=== PATIENT | female | born 1955 | race Caucasian/White ===

== ENCOUNTER 2019-05-15 07:27 | Observation (INO) | payer BC, MEDICARE ==
--- NOTE | 2019-05-15 07:46 | RAD ---
EXAM: Portable chest PROVIDED CLINICAL HISTORY: Chest pain COMPARISON: None FINDINGS: Cardiac and mediastinal silhouette is within normal limits. No focal consolidation, pleural fluid or pneumothorax evident. Median sternotomy changes are seen. IMPRESSION: No evidence for an acute cardiopulmonary process.
[2019-05-15] MEDS ORDERED: Aspirin Chewable 81 MG TAB ONE (08:06)
[2019-05-15] MEDS ORDERED: Nitroglycerin 2% Ointment 1 INCH/1 GM Packet ONE (08:06)
[2019-05-15 08:12] LABS: Hemoglobin 13.6 g/dL (12.0-16.0); Mean Corpuscular HGB CONC 32.1 g/dL (32.0-36.0); Mean Corpuscular Volume 65.4 fL (78.0-98.0); Mean Platelet Volume 8.6 fL (7.4-10.4); Platelet Count 316 thou/uL (130-400); RBC Distribution Width 14.1 % (11.5-14.5); Red Blood Cell (RBC) Count 6.46 mill/uL (4.20-5.40); White Blood Cell (WBC) Count 13.1 thou/uL (4.8-10.8)
[2019-05-15 08:22] LABS: ALT (SGPT) 23 U/L (8-55); AST (SGOT) 17 U/L (5-34); Albumin 4.2 g/dL (3.4-4.8); Alkaline Phosphatase 102 U/L (40-150); Anion Gap 12 mmol/L (10-20); BUN (Urea Nitrogen) 14 mg/dL (9.8-20.1); Bilirubin, Total 0.5 mg/dL (0.2-1.2); CK (CPK) 67 U/L (29-168); Calc. Creatinine Clearance 0 mL/min (70-130); Calcium 9.5 mg/dL (7.8-10.44); Carbon Dioxide 27 mmol/L (23-31); Chloride 105 mmol/L (98-107); Estimated GFR-MDRD 71; Globulin 3.1 g/dL (2.4-3.5); Glucose 98 mg/dL (80-115); Lipase 24 U/L (8-78); Potassium 3.8 mmol/L (3.5-5.1); Protein, Total 7.3 g/dL (6.0-8.3); Sodium 140 mmol/L (136-145)
[2019-05-15] MEDS ORDERED: Morphine 4 MG/ML VIAL ONE (08:29)
[2019-05-15 08:30] LABS: #Basophils 0.1 thou/uL (0.0-0.2); #Eosinphils 0.3 thou/uL (0.0-0.7); #Lymphocytes 2.5 thou/uL (1.20-3.40); #Monocytes 0.8 thou/uL (0.11-0.59); #Neutrophils 9.4 thou/uL (1.40-6.50); %Basophils 0.6 % (0.0-1.0); %Eosinophils 2.5 % (0.0-10.0); %Lymphocytes 19.1 % (21.0-51.0); %Monocytes 6.1 % (0.0-10.0); %Neutrophils 71.7 % (42.0-75.0); Anisocytosis SLIGHT = 6-15 cells (100X) (0-5/hpf); Hypochromia SLIGHT = 6-15 cells (100X) (0-5/hpf); Large Platelets SLIGHT; MDiff Complete? YES; Microcytosis MODERATE=15-30 cells (100X) (0-5/hpf); Platelet Morphology Comment Appears Adequate
--- NOTE | 2019-05-15 08:49 | CT ---
EXAM: CT pulmonary angiogram with IV contrast and 3-D MIP reconstructions PROVIDED CLINICAL HISTORY: Chest pain COMPARISON: None FINDINGS: There is no evidence for central or segmental pulmonary embolus. The lungs are free of significant op acity. No pleural fluid or pneumothorax apparent. No evidence for thoracic lymph node enlargement. The airway appears patent and of normal caliber. The visualized portions of the upper abdomen demonst rate no acute findings. The osseous structures demonstrate no concerning lytic or blastic lesions. Median sternotomy and CABG changes are seen. IMPRESSION: No evidence for central or segmental pulmonary embolus.
--- NOTE | 2019-05-15 10:12 | PDOC.FPRHP ---
- History of Present Illness Chief Complaint: Chest Pain History of Present Illness: Mrs. Gonzalez is a 64 y/o female with a history of HTN and a Cardiac Myxoma treated operatively who presents to the ED with a 2 day history of chest pain. She states that the pain is localized to her right and left upper chest, as well as her lower neck, and does not radiate. She also notes that she has recently gained 10 LBS, has had headaches off and on for the past 2 weeks, and has had difficulty lying flat or inhaling deeply for the past 2 days. She felt that she could control the pain with Tylenol, but came to the ED following advice from her daughter. She denies any visual disturbances, shortness of breath, N/V/D, abdominal pain, fevers, chills or night sweats. ED Course: The patient received an EKG, which showed no acute ischemic changes, as well as a CXR, which was also negative. Initial troponin values were negative, and a Chest/Thorax CTA performed by the ED attending physician was negative for PE. She received 1 dose of morphine, 1 dose of Nitro paste, and 81 mg of Aspirin. The patient thinks that the morphine relieved her pain but also made her somewhat nauseous. - Allergies/Adverse Reactions Allergies Allergy/AdvReac Type Severity Reaction Status Date / Time No Known Allergies Allergy Unverified 05/15/19 11:08 - Home Medications Medication Instructions Recorded Confirmed Type Aspirin [Ecotrin] 81 mg PO DAILY 05/15/19 05/15/19 History Biotin 5,000 mcg PO DAILY 05/15/19 05/15/19 History Calcium Carbonate [Calcium] 600 mg PO DAILY 05/15/19 05/15/19 History Cholecalciferol (Vitamin D3) 2,000 unit PO DAILY 05/15/19 05/15/19 History [Vitamin D3] Folic Acid 0.4 mg PO DAILY 05/15/19 05/15/19 History Levothyroxine Sodium 88 mcg PO DAILY 05/15/19 05/15/19 History Lisinopril/Hydrochlorothiazide 1 tablet PO DAILY 05/15/19 05/15/19 History [Lisinopril-Hctz 10-12.5 mg Tab] Omeprazole 20 mg PO DAILY 05/15/19 05/15/19 History - History PMHx: Cardiax Myxoma (Treated Surgically), HTN, GERD, Hypothyroidism PSHx: See PMHx, Hysterectomy FHx: Non-Contributory Social: Denies x3 - Review of Systems General: reports: weight/appetite/sleep changes (+10 LBS). denies: fever/chills , night sweats Eyes: denies: eye pain, vision changes ENT: denies: nasal congestion, rhinorrhea Respiratory: denies: cough, congestion, shortness of breath Cardiovascular: reports: chest pain, orthopnea. denies: palpitation, edema Gastrointestinal: denies: nausea, vomiting, diarrhea, constipation, abdominal pain, GI bleeding Genitourinary: denies: dysuria, discharge Skin: denies: rashes Musculoskeletal: denies: pain, stiffness, swelling Neurological: denies: syncope, weakness - Vital signs BP: [122/70] HR: [77] RR: [20] Tmax: [] Pox: [97]% on [Room] Wt: [] - Physical Exam Constitutional: NAD, awake, alert and oriented, well developed HEENT: normocephalic and atraumatic, PERRLA, conjunctiva clear, no scleral icterus, grossly normal vision, grossly normal hearing, normal nasal mucosa, MMM , oropharynx clear, good dention Neck: supple, FROM, trachea midline, no LAD, no JVD, no thyromegaly Chest: no-tender to palpation, no lesions Heart: RRR, normal S1/S2, no murmurs/rubs/gallops, pulses present, no edema Lungs: CTAB, no respiratory distress, good air movement, no rales/rhonchi, no wheezing, no retractions Abdomen: soft, non-tender, bowel sounds present, no masses/distention, no hernias Musculoskeletal: normal structure, normal tone, ROM grossly normal Neurological: no focal deficit, CN II-XII intact Skin: no rash/lesions, no jaundice Heme/Lymphatic: no unusual bruising or bleeding, no purpura, no petechia Psychiatric: normal mood and affect, good judgment and insight, intact recent and remote memory FMR H&P: Results - Labs Result Diagrams: 05/15/19 07:49 05/15/19 07:49 Lab results: WBC 13.1 thou/uL (4.8-10.8) H 05/15/19 07:49 Hgb 13.6 g/dL (12.0-16.0) 05/15/19 07:49 Hct 42.2 % (36.0-47.0) 05/15/19 07:49 MCV 65.4 fL (78.0-98.0) L 05/15/19 07:49 Plt Count 316 thou/uL (130-400) 05/15/19 07:49 Neutrophils % 71.7 % (42.0-75.0) 05/15/19 07:49 Sodium 140 mmol/L (136-145) 05/15/19 07:49 Potassium 3.8 mmol/L (3.5-5.1) 05/15/19 07:49 Chloride 105 mmol/L (98-107) 05/15/19 07:49 Carbon Dioxide 27 mmol/L (23-31) 05/15/19 07:49 BUN 14 mg/dL (9.8-20.1) 05/15/19 07:49 Creatinine 0.81 mg/dL (0.6-1.1) 05/15/19 07:49 Glucose 98 mg/dL (80-115) 05/15/19 07:49 Calcium 9.5 mg/dL (7.8-10.44) 05/15/19 07:49 Total Bilirubin 0.5 mg/dL (0.2-1.2) 05/15/19 07:49 AST 17 U/L (5-34) 05/15/19 07:49 ALT 23 U/L (8-55) 05/15/19 07:49 Alkaline Phosphatase 102 U/L (40-150) 05/15/19 07:49 Creatine Kinase 67 U/L (29-168) 05/15/19 07:49 B-Natriuretic Peptide 36.0 pg/mL (0-100) 05/15/19 07:49 Serum Total Protein 7.3 g/dL (6.0-8.3) 05/15/19 07:49 Albumin 4.2 g/dL (3.4-4.8) 05/15/19 07:49 Lipase 24 U/L (8-78) 05/15/19 07:49 - EKG Interpretation EKG: No acute ST Segment changes. - Radiology Interpretation Chest x-ray Status: report reviewed by me (NAF) CT scan - chest Status: report reviewed by me (INDY) FMR H&P: A/P - Problem List (1) Chest pain Current Visit: Yes Status: Acute Code(s): R07.9 - CHEST PAIN, UNSPECIFIED (2) GERD (gastroesophageal reflux disease) Current Visit: Yes Status: Acute Code(s): K21.9 - GASTRO-ESOPHAGEAL REFLUX DISEASE WITHOUT ESOPHAGITIS (3) HTN (hypertension) Current Visit: Yes Status: Acute Code(s): I10 - ESSENTIAL (PRIMARY) HYPERTENSION (4) History of myxoma Current Visit: Yes Status: Acute Code(s): Z86.018 - PERSONAL HISTORY OF OTHER BENIGN NEOPLASM (5) Hypothyroidism Current Visit: Yes Status: Acute Code(s): E03.9 - HYPOTHYROIDISM, UNSPECIFIED - Plan 1. Chest Pain, ACS r/o -2 day history of right and left sided chest/neck pain, no associated symptoms of N/V, sweating, palpitations, syncopal episodes or shortness of breath -Concerning associated symptoms of recent weight gain and pain with lying flat, could also possibly be related to GERD -EKG: Negative for ST-Elevation -CXR: [facility] -Chest/Thorax CTA: Negative for PE -Trops: Negative x2 -TSH: Pending -Mg: Pending -Phos: Pending -Patient current appears to be hemodynamically stable - admit to Tele-Obs -Plan for Stress Test on 05/16 -Order GI Cocktail for possible GI etiology 2. HTN -Currently well controlled at 122/70 -Continue home medication regimen 3. Hypothyroidism -Patient reports no difficulty obtaining or tolerating medication -TSH: Pending -Continue home medication regimen 4. GERD -Patient does not believe that this episode is related to GERD -Denies N/V, ABD pain or changes in bowel habits 5. Hx of Myxoma (Cardiac) -Remote Hx of Cardiac Myxoma treat operatively -Raises suspicion that current chest pain may be cardiac in nature Code: Full Diet: Heart Healthy, NPO after Midnight Fluids: SL Activity: Ad Ammy Dispo: Admit patient to Tele-Obs and plan for NM Cardiac Stress Test in AM. Expected LOS < 48H FMR H&P: Upper Level - Pertinent history 64yo F with pmh of cardiac myxoma (s/p resection 2013) presents for acute onset of CP. Pt was woken up from sleep 36hours prior to presentation with dull substernal, non radiating pain that is worsened with laying flat, belching, and with related globus sensation when swallowing. Also reports intermittent SOB. Denies diaphoresis. Prior to her surgery pt reports she had an stress test and cath done which were wnl. She also reports a normal ECHO in the last few years. Dr. 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 - Pertinent findings EKG, CXR, CTA chest, initial trop and vitals all wnl physical exam shows no notable findings, no LE edema - Plan Date/Time: 05/15/19 1002 I, Jas Villa PGY2, have evaluated this patient and agree with findings/ plan as outlined by programming internship resident. Pertinent changes/additions are listed here. CP likely 2/2 GERD A- Hx of GERD with pain exacerbated by laying flat and belching with associated globus sensation. However her cardiac history behooves ACS r/o. Workup is all negative thus far as written above. P- trend trops -stress test -ASA -FLP, TSH, Mg, Phos -pantoprazole 40mg BID -GI coctail now -tums prn -nitro SL for angina, notify provider if this happens GERD -per plan above HTN -home meds Hypothyroid -home meds, checking TSH CODE: Full Addendum - Attending - Attending Attestation Date/Time: 05/15/192028 I personally evaluated the patient and discussed the management with Dr. Hu and Daisy. H&P repeated by me. I agree with the History, Examination, Assessment and Plan documented above with any addition or exceptions noted below. CP r/o NC- most likely secondary to GERD but patient with cardiac risk factors- stress test resting portion done today and stress portion in the am.
[2019-05-15 10:26] LABS: Phosphorus 3.1 mg/dL (2.3-4.7)
[2019-05-15] MEDS ORDERED: Nitroglycerin 4.9 GM Bottle SL PRN (11:08)
[2019-05-15] MEDS ORDERED: Ondansetron ODT 4 MG TAB PO PRN (11:08)
[2019-05-15] MEDS ORDERED: Calcium Carbonate 500 MG ChewTAB PO PRN (11:08)
[2019-05-15] MEDS ORDERED: Enoxaparin Sodium 40 MG/0.4 ML SYRINGE SC SCH (11:08)
[2019-05-15] MEDS ORDERED: Lidocaine 2% Viscous Solution 10 ML, Aluminum & Magnesium Hydroxide 30 ML SSW SCH ×2 (11:08→14:00)
[2019-05-15] MEDS ORDERED: Acetaminophen 325 MG TAB PO PRN (11:09)
[2019-05-15 11:16] VITALS: BMI 34.6
[2019-05-15] MEDS ORDERED: Calcium Carbonate 600 MG TAB PO SCH (11:45)
[2019-05-15] MEDS ORDERED: Folic Acid 1 MG TAB PO SCH (11:45)
[2019-05-15] MEDS ORDERED: Levothyroxine Sodium 88 MCG TAB PO SCH (11:45)
[2019-05-15] MEDS ORDERED: Lisinopril/Hydrochlorothiazide 10 mg/12.5 mg Tablet PO SCH (11:45)
[2019-05-15 11:53] LABS: Phosphorus 2.9 mg/dL (2.3-4.7)
[2019-05-15 12:00] LABS: Troponin I Less than 0.010 ng/mL (< 0.028)
[2019-05-15] MEDS ORDERED: ISOVUE-370 76%-LOCM 1 ML ONE (12:46)
[2019-05-15] MEDS: Acetaminophen 325 MG TAB PO PRN ×2 (13:58→19:55)
[2019-05-15 14:38] LABS: Troponin I Less than 0.010 ng/mL (< 0.028)
[2019-05-15] MEDS ORDERED: Simethicone Chewable 80 MG TAB PO PRN (22:23)
[2019-05-15] MEDS ORDERED: Sucralfate 1 GM TAB PO SCH (22:30)
[2019-05-15] MEDS ORDERED: Simethicone Chewable 80 MG TAB PO SCH (22:30)
[2019-05-16 05:07] LABS: #Basophils 0.1 thou/uL (0.0-0.2); #Eosinphils 0.2 thou/uL (0.0-0.7); #Lymphocytes 2.3 thou/uL (1.20-3.40); #Monocytes 0.5 thou/uL (0.11-0.59); #Neutrophils 5.6 thou/uL (1.40-6.50); %Basophils 0.8 % (0.0-1.0); %Eosinophils 2.2 % (0.0-10.0); %Lymphocytes 26.2 % (21.0-51.0); %Monocytes 5.8 % (0.0-10.0); %Neutrophils 64.9 % (42.0-75.0); Hemoglobin 12.5 g/dL (12.0-16.0); Mean Corpuscular HGB CONC 28.8 g/dL (32.0-36.0); Mean Corpuscular Hemoglobin 19.3 pg (27.0-31.0); Platelet Count 352 thou/uL (130-400); RBC Distribution Width 14.6 % (11.5-14.5); White Blood Cell (WBC) Count 8.6 thou/uL (4.8-10.8)
[2019-05-16 05:34] LABS: Cardiac Risk 3.7 (Less than 4.5)
--- NOTE | 2019-05-16 05:55 | PDOC.FM ---
- Subjective Subjective: Mrs. Gonzalez was using the restroom at the time of evaluation, but had no chest pain, shortness of breath or difficulty with ambulation to and from her bed. She denied any overnight events and is eager to complete her stress test later this AM. - Objective Vital Signs & Weight: Vital Signs (12 hours) Temp Pulse Resp BP Pulse Ox 05/16/19 04:00 98.2 F 75 16 132/69 95 05/15/19 19:30 97.9 F 86 14 126/62 95 Weight Weight 93.213 kg I&O: 05/14/19 05/15/19 05/16/19 06:59 06:59 06:59 Intake Total 1170 Output Total 900 Balance 270 Result Diagrams: 05/16/19 04:39 05/15/19 07:49 Phys Exam - Physical Examination Constitutional: NAD HEENT: PERRLA, moist MMs, sclera anicteric, oral pharynx no lesions Neck: no nodes, no JVD, supple, full ROM Respiratory: no wheezing, no rales, no rhonchi, clear to auscultation bilateral Cardiovascular: RRR, no significant murmur, no rub Gastrointestinal: soft, non-tender, no distention, positive bowel sounds Musculoskeletal: no edema, pulses present Neurological: non-focal, moves all 4 limbs Lymphatic: no nodes Psychiatric: normal affect Skin: no rash Dx/Plan (1) Chest pain Code(s): R07.9 - CHEST PAIN, UNSPECIFIED Status: Acute (2) GERD (gastroesophageal reflux disease) Code(s): K21.9 - GASTRO-ESOPHAGEAL REFLUX DISEASE WITHOUT ESOPHAGITIS Status: Acute (3) HTN (hypertension) Code(s): I10 - ESSENTIAL (PRIMARY) HYPERTENSION Status: Acute (4) History of myxoma Code(s): Z86.018 - PERSONAL HISTORY OF OTHER BENIGN NEOPLASM Status: Acute (5) Hypothyroidism Code(s): E03.9 - HYPOTHYROIDISM, UNSPECIFIED Status: Acute - Plan Plan: 1. Chest Pain, ACS r/o -2 day history of right and left sided chest/neck pain, no associated symptoms of N/V, sweating, palpitations, syncopal episodes or shortness of breath -Concerning associated symptoms of recent weight gain and pain with lying flat, could also possibly be related to GERD -EKG: Negative for ST-Elevation -CXR: NAF -Chest/Thorax CTA: Negative for PE -Trops: Negative x3 -TSH: 2.8 -M.9 -Phos: 2.9 -Lipids: Triglycerides (101), Cholesterol (176), LDL (108), HDL (48) -Patient current appears to be hemodynamically stable -Complete Stress Test on 05/16 -Order GI Cocktail for possible GI etiology -ASCVD Score: 8 -Will initiate statin therapy following DC 2. HTN -Currently well controlled at 132/69 -Continue home medication regimen 3. Hypothyroidism -Patient reports no difficulty obtaining or tolerating medication -TSH: 2.8 -Continue home medication regimen 4. GERD -Denies N/V, ABD pain or changes in bowel habits -GI Cocktail and Mylicon ordered - patient reports reduced symptoms -Outpatient GI consult recommended following DC -Will DC with Carafate for breakthrough GI-related discomfort 5. Hx of Myxoma (Cardiac) -Remote Hx of Cardiac Myxoma treat operatively -Raises suspicion that current chest pain may be cardiac in nature Code: Full Diet: Heart Healthy, NPO after Midnight Fluids: SL Activity: Ad Ammy Dispo: Await completion of NM Cardiac Stress Test this AM - consult Cardiology if required. If no cardiac etiology is detected then patient will most likely require outpatient GI follow-up and EGD as well as high intensity statin therapy due to ASCVD score. Expected LOS < 12H Addendum - Attending - Attending Attestation Date/Time: 05/16/19 1041 I personally evaluated the patient and discussed the management with Dr. Hu at 0650 am. I agree with the History, Examination, Assessment and Plan documented above with any addition or exceptions noted below. CP R/O AK- stress test this am. If negative stable for d/c. Pain most likely secondary to GERD- on PPI will add home carafate. Will need outpatient workup for EGD. Hyperlipidemia with ASCVD of 8.7%- needs mod intensity statin.
[2019-05-16] MEDS ORDERED: Levothyroxine Sodium 88 MCG TAB PO SCH (06:00)
[2019-05-16] MEDS: Sucralfate 1 GM TAB PO SCH ×2 (08:10→12:11)
[2019-05-16] MEDS ORDERED: Aspirin 81 mg Enteric Coated Tablet PO SCH (09:00)
[2019-05-16] MEDS ORDERED: Non-Formulary Item 1 EACH (Biotin [Biotin] 5,000 MCG) PO SCH (09:00)
[2019-05-16] MEDS ORDERED: Aspirin 325 MG TAB PO SCH (09:00)
[2019-05-16] MEDS ORDERED: Folic Acid 1 MG TAB PO SCH (09:00)
[2019-05-16] MEDS ORDERED: Lisinopril/Hydrochlorothiazide 10 mg/12.5 mg Tablet PO SCH (09:00)
[2019-05-16] MEDS ORDERED: Calcium Carbonate 600 MG TAB PO SCH (09:00)
[2019-05-16] MEDS ORDERED: ADENOSINE 60 MG/20 ML VIAL ONE (09:50)
--- NOTE | 2019-05-16 11:40 | NM ---
EXAM: NM Cardiac Stress W EF WF PROVIDED CLINICAL HISTORY: Chest pain COMPARISON: None RADIOPHARMACEUTICAL: 29.1 millicuries technetium 99m labeled sestamibi IV stress 30.3 millicuries technetium 99m labeled sestamibi IV rest FINDINGS: There is normal, homogeneous distribution of radiotracer throughout the left ventricular myocardium. Gated data demonstrate normal myocardial wall motion and thickening with calculated LVEF 79%. Calculated TID is 1.22. IMPRESSION: 1. No scintigraphic evidence for ischemia. 2. Calculated LVEF 79%.
[2019-05-16 12:45] VITALS: BP 143/63; TEMP 97.4
[2019-05-16] MEDS ORDERED: Prevnar 13-Val Conj/PF 0.5 ML SYRINGE IM ONE (13:15)
--- NOTE | 2019-05-16 19:23 | DIS ---
DATE OF ADMISSION: 05/15/2019 DATE OF DISCHARGE: 05/16/2019 RESIDENT: Von Hu MD ADMITTING ATTENDING: Uzma Flores MD DISREGARD ATTENDING: Uzma Flores MD CONSULTS: None. PROCEDURES: Chest x-ray, no evidence for acute cardiopulmonary processes. Chest/ thorax CTA, no evidence for segmental or central pulmonary embolus. Nuclear stress test, no scintigraphic evidence for ischemia with a calculated left ventricular ejection fraction 79%. PRIMARY DIAGNOSIS: Chest pain, most likely secondary to gastroesophageal reflux disease. SECONDARY DIAGNOSIS: Hypertension, hypothyroidism, history of cardiac myxoma. DISCHARGE MEDICATIONS: Atorvastatin 40 mg p.o. daily, Carafate 1 g p.o. at bedtime PRN DISCONTINUED MEDICATIONS: Acetaminophen 650 mg, aspirin 81 mg, calcium carbonate 1000 mg, vitamin D3 2000 units, folic acid 0.5 mg, lisinopril/ hydrochlorothiazide 1 tab, levothyroxine 88 mcg, pantoprazole 40 mg, Carafate 1 g. HISTORY OF PRESENT ILLNESS AND HOSPITAL COURSE: Ms. wilde is a 64-year-old female with a history of hypertension and cardiac myxoma (treated operatively), who presents to the emergency department with a 2-day history of chest pain. She states that the pain is localized to her right and left upper chest as well as her lower neck. It does not radiate. She also notes that she recently gained 10 pounds and has had headaches off and on for the past two weeks as well as difficulty lying flat or inhaling deeply for the past two days. She felt that she could control the pain with Tylenol, but came to the emergency department on the advice of her daughter. She denies any visual disturbance or shortness of breath. No nausea, vomiting, diarrhea, abdominal pain, fevers, chills, or night sweats. While in the emergency department, the patient received an EKG, which showed no acute ischemic change as well as chest x-ray, which was also negative. Initial troponin values were negative x3 and a chest/thorax CTA performed by the ED attending physician was negative for pulmonary embolus. She received one dose of morphine , one dose of nitroglycerin paste, and 81 mg of aspirin. The patient thinks that the morphine relieved her pain, but noted that it also made her somewhat nauseous. During her hospital stay, the patient completed a stress test, which also showed no evidence of acute ischemic incidents and left ventricular ejection fraction of 79%. Laboratory values indicated a white blood cell count of 8.6, hemoglobin of 12.5, hematocrit 43.5, and platelets 352. Sodium 140, potassium 3.8, chloride 105, carbon dioxide 27, BUN 14, creatinine 0.81, glucose 98, calcium 9.5, phosphorus 3.1, magnesium 2.0, total bilirubin 0.5, AST 17, ALT 23, alkaline phosphatase 102. Creatine kinase 67. Troponins negative x3. BNP 36. TSH 2.8. Lipase 24. Cholesterol 176, triglycerides 101, LDL 108, HDL 48. ASCVD score was calculated to be 8. DISPOSITION: Stable. DISCHARGE INSTRUCTIONS: 1. Location: Home. 2. Diet: Heart healthy. 3. Activity: Ad shravan. 4. Followup: The patient was advised to follow up with her primary care physician in 1 to 2 weeks as well as seek outpatient consultation with a tobacco classer for probable uncontrolled GERD. The patient was advised that she should ask to receive an EGD as well as begin statin therapy based on her calculated ASCVD risk score. Lastly, the patient was given a prescription for Carafate in the event that she had breakthrough pain associated with her GERD in the interim. Job ID: [id number] [facility]
== END 2019-05-16 14:08 | disposition home or self-care (01) ==
LOC: ERS 07:27 → 2SW 09:28
PROVIDERS: ADMIT Family Medicine; ATTEND Family Medicine
DX: R07.2 Precordial pain (principal); I10 Essential (primary) hypertension; K21.9 Gastro-esophageal reflux disease without esophagitis; E03.9 Hypothyroidism, unspecified; Z86.018 Personal history of other benign neoplasm; Z79.82 Long term (current) use of aspirin; Z79.899 Other long term (current) drug therapy
CPT/HCPCS: 71045; 71275; 78452; 80061; 82550; 83690; 83735; 83880; 84100; 84484 ×2; 85025; 93005; 93017; 94760 ×2; 96361; 96372; 96374; 99285; A9500; G0378 ×3; 36415; 80053; 84443; J0153; J1650; J2270; Q9966

== ENCOUNTER 2020-07-27 10:14 | Outpatient (CLI) | payer MEDICARE ==
--- NOTE | 2020-07-27 11:06 | BD ---
BONE DENSITOMETRY: Date: 07/27/2020 INDICATION: Postmenopausal screening. FINDINGS: Lumbar Spine: BMD (g/cm2) L1 0.927 T-Score: -0.6 L2 1.059 T-Score: 0.3 L3 1.106 T-Score: 0.2 L4 1.154 T-Score: 0.8 Total 1.062 T-Score: 0.1 Left Femoral Neck: 0.632 T-Score: -2.0 Total Femur: 0.993 T-Score: 0.4 IMPRESSION: 1. Bone mineral density of the lumbar spine within normal range. 2. Bone mineral density of the femoral neck indicate osteopenia. 10 YEAR FRACTURE RISK: Major osteoporotic fracture: 17% Hip fracture: 2.5% POS: AGW
--- NOTE | 2020-07-27 11:56 | MMO ---
Bilateral MAMMO Bilat Screen [facility]. CLINICAL HISTORY: Patient is 65 years old and is seen for screening. The patient has the following family history of breast cancer: sister, at age 50. The patient has no personal history of cancer. VIEWS: The views performed were: bilateral craniocaudal with tomosynthesis and bilateral mediolateral oblique with tomosynthesis. FILMS COMPARED: The present examination has been compared to prior imaging studies performed at [facility] on 05/14/2018 and 06/03/2019. This study has been interpreted with the assistance of computer-aided detection. MAMMOGRAM FINDINGS: The breasts are heterogeneously dense, which could obscure a lesion on mammography. There are stable benign appearing calcifications seen in both breasts. There are also vascular calcifications. There are no suspicious masses, suspicious calcifications, or new areas of architectural distortion. IMPRESSION: THERE IS NO MAMMOGRAPHIC EVIDENCE OF MALIGNANCY. A ROUTINE FOLLOW-UP MAMMOGRAM IN 1 YEAR IS RECOMMENDED. THE RESULTS OF THIS EXAM WERE SENT TO THE PATIENT. ACR BI-RADS Category 2 - Benign finding MAMMOGRAPHY NOTE: 1. A negative mammogram report should not delay a biopsy if a dominant of clinically suspicious mass is present. 2. Approximately 10% to 15% of breast cancers are not detected by mammography. 3. Adenosis and dense breasts may obscure an underlying neoplasm. Reported by: PETE BAKER MD Electonically Signed: [id number]
== END 2020-07-27 10:15 | disposition home or self-care (01) ==
LOC: BICMAMMO 10:14
PROVIDERS: ATTEND Registered Nurse
DX: Z12.31 Encounter for screening mammogram for malignant neoplasm of breast (principal); Z13.820 Encounter for screening for osteoporosis; Z78.0 Asymptomatic menopausal state; M85.852 Other specified disorders of bone density and structure, left thigh; Z80.3 Family history of malignant neoplasm of breast
CPT/HCPCS: 77063; 77067; 77080

== ENCOUNTER 2021-08-06 11:18 | Outpatient (CLI) | payer MEDICARE | END 2021-08-06 11:19 | disposition home or self-care (01) | LOC: BICMAMMO 11:18 | PROVIDERS: ATTEND Registered Nurse | DX: Z12.31 Encounter for screening mammogram for malignant neoplasm of breast (principal); Z80.3 Family history of malignant neoplasm of breast | CPT/HCPCS: 77063; 77067 ==

== ENCOUNTER 2022-09-02 09:58 | Outpatient (CLI) | payer MEDICARE, OTHER | END 2022-09-02 09:59 | disposition home or self-care (01) | LOC: BICMAMMO 09:58 → MERGE 10:15 | PROVIDERS: ATTEND Registered Nurse | DX: Z12.31 Encounter for screening mammogram for malignant neoplasm of breast (principal); R92.1 Mammographic calcification found on diagnostic imaging of breast; M85.852 Other specified disorders of bone density and structure, left thigh; M85.851 Other specified disorders of bone density and structure, right thigh; M81.0 Age-related osteoporosis without current pathological fracture; Z78.0 Asymptomatic menopausal state; Z80.3 Family history of malignant neoplasm of breast | CPT/HCPCS: 77063; 77067; 77080 ==

== ENCOUNTER 2024-10-18 08:45 | Outpatient (CLI) | payer OTHER | END 2024-10-18 08:46 | disposition home or self-care (01) | LOC: BICMAMMO 08:45 | PROVIDERS: ATTEND Registered Nurse | DX: Z12.31 Encounter for screening mammogram for malignant neoplasm of breast (principal); M85.851 Other specified disorders of bone density and structure, right thigh; M85.852 Other specified disorders of bone density and structure, left thigh; Z78.0 Asymptomatic menopausal state; Z80.3 Family history of malignant neoplasm of breast | CPT/HCPCS: 77063; 77067; 77080 ==

== ENCOUNTER 2025-05-26 06:05 | Day surgery (SDC) | payer OTHER ==
[2025-05-25 14:20] VITALS: BMI 31.4
[~2025-05-26 06:05] MED LIST: EPINEPHrine 0.3 MG in Ophthalmic Irrigation Solution 500 ML IRR SCH
[2025-05-26] MEDS ORDERED: Cyclopentolate 1% Opth Drop 2 ML BOT ONE (06:18)
[2025-05-26] MEDS ORDERED: PROPOFOL 20 ML ONE (07:00)
[2025-05-26] MEDS ORDERED: CEFAZOLIN 1 GM VIAL ONE (07:12)
[2025-05-26] MEDS ORDERED: Lidocaine 4% PF 5 ML AMP ONE (07:12)
[2025-05-26] MEDS ORDERED: Maxitrol 0.1% Opth Oint 3.5 GM TUBE ONE (07:12)
[2025-05-26] MEDS ORDERED: Lidocaine 1% PF 5 ML VIAL ONE (07:12)
== END 2025-05-26 08:30 | disposition home or self-care (01) ==
LOC: SDC 06:05
PROVIDERS: ATTEND Ophthalmology Retina Specialist
PROC: 08B53ZZ Excision of Left Vitreous, Percutaneous Approach (ICD-10-PCS; principal; 2025-05-26)
DX: H43.312 Vitreous membranes and strands, left eye (principal); I10 Essential (primary) hypertension
CPT/HCPCS: 67041; 93005; J0166; J0690; J1100; J2250; J2704; J3490; 93010